=== PATIENT | male | born 1975 | race Caucasian/White ===

== ENCOUNTER 2019-05-10 12:24 | Emergency (ER) | payer OTHER, SELFPAY ==
--- NOTE | 2019-05-10 12:27 | ED.EXTPRO ---
HPI - Extremity Problem <Bette Dinero PA-C - Last Filed: 05/10/19 20:43> General Chief complaint: Skin/Abscess/Foreign Body Stated complaint: Rt ring finger infection Time Seen by Provider: 05/10/19 12:26 Source: patient Mode of arrival: ambulatory Limitations: no limitations History of Present Illness HPI Narrative: This 43-year-old right-handed male comes to ED secondary to concern for right ring finger slivers and infection. 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 He noticed a little swelling and a small nodule on the finger, then a lot of itching and more redness around the area this morning. He states this is not painful, he has no difficulty with movement or weakness. No drainage from the finger. He denies any fever or other new complaints. He did not notice any lesions prior to working yesterday. He is here for few more days and thought he better get this checked out since he will be traveling for work Related Data Previous Rx's Medication Instructions Recorded cephalexin [Keflex] 500 mg PO Q6H 7 Days #28 cap 05/10/19 Allergies Allergy/AdvReac Type Severity Reaction Status Date / Time No Known Drug Allergies Allergy Verified 05/10/19 12:39 Review of Systems <Bette Dinero PA-C - Last Filed: 05/10/19 20:43> Review of Systems ROS Unobtainable: All systems reviewed & are unremarkable except as noted in HPI and below PFSH <Bette Dinero PA-C - Last Filed: 05/10/19 20:43> Medical History (Updated 05/10/19 @ 13:47 by ) No chronic problems (Chronic) Surgical History (Updated 05/10/19 @ 12:58 by Bette Dinero PA-C) No history of previous surgery (Chronic) Social History Smoking Status: Never smoker Social History Smoking Status: Never smoker Exam <Bette Dinero PA-C - Last Filed: 05/10/19 20:43> Narrative Exam Narrative: GENERAL APPEARANCE: Patient sitting comfortably, in no distress. LUNGS: Clear to auscultation bilaterally. HEART: Rate and rhythm regular without murmur, normal S1 and S2, no S3 or S4. DERMATOLOGIC: Right ring finger anterior surface just distal to the PIP there is a punctate firm papule about 3 mm in diameter, no drainage, no visible foreign body. The finger pad is not edematous, mildly warm and erythematous, nontender MUSCULOSKELETAL: Right ring finger full active range of motion, strength is intact in all gallegos against resistance NEUROVASCULAR: Right hand fingers are warm and pink with sensation grossly intact Initial Vital Signs Initial Vital Signs: Vital Signs Temperature 98.3 F 05/10/19 12:30 Pulse Rate 55 L 05/10/19 12:30 Respiratory Rate 17 05/10/19 12:30 Blood Pressure 136/76 05/10/19 12:30 Pulse Oximetry 98 05/10/19 12:30 <DO Amaury Luz Last Filed: 05/14/19 07:45> Initial Vital Signs Initial Vital Signs: Vital Signs Temperature 98.3 F 05/10/19 12:30 Pulse Rate 55 L 05/10/19 12:30 Respiratory Rate 17 05/10/19 12:30 Blood Pressure 136/76 05/10/19 12:30 Pulse Oximetry 98 05/10/19 12:30 Course <Bette Dinero PA-C - Last Filed: 05/10/19 20:43> Orders Ordered: ED Orders 05/10/19 12:53 XR finger RT min 2V Stat Vital Signs - 8 hr 05/10/19 12:30 Temperature 98.3 F Pulse Rate 55 L Respiratory Rate 17 Blood Pressure [Left Arm] 136/76 Pulse Oximetry 98 <DO Amaury Luz Last Filed: 05/14/19 07:45> Orders Ordered: ED Orders 05/10/19 12:53 XR finger RT min 2V Stat Vital Signs - 8 hr 05/10/19 12:30 Temperature 98.3 F Pulse Rate 55 L Respiratory Rate 17 Blood Pressure [Left Arm] 136/76 Pulse Oximetry 98 MDM - Extremity (Nontraumatic) <PAULA Mazariegos Last Filed: 05/10/19 20:43> Imaging Data finger: Radiologist's impression: [address] [address] XRay Report Signed Patient: Corby Carmona PMR#: [id number] : 1975Acct:[id number] Age/Sex: 43 / MDate of Service: 05/10/19 Loc: ED Accession Number: [id number] Procedure: XR finger RT min 2V Ordering Provider: Bette Dinero P.A-C PROCEDURE: XR FINGER RT MIN 2V INDICATIONS: R. ring ?metal splinters TECHNIQUE: AP hand, 2 views of the right fourth finger(s) acquired. COMPARISON: None. FINDINGS: Bones: No fractures or dislocations. No suspicious bony lesions. Soft tissues: No suspicious soft tissue calcifications. IMPRESSION: No radiopaque foreign body. No acute fracture. No osseous lesion. If symptoms or clinical suspicion for pathology persists, repeat plain films, or advanced imaging (CT, bone scan, or MRI) may be helpful for further assessment. Dictated by: Eloina Purdy M.D. on 05/10/2019 at 12:16 Approved by: Eloina Purdy M.D. on 05/10/2019 at 12:17 Discharge Plan Departure Patient Disposition: Home Clinical Impression: Cellulitis Discharge Date/Time: 05/10/19 14:00 Interventions: ED Discharge Assessment Last Done: 05/10/19 13:57 Instructions: DI for Cellulitis -- Adult Activity Restrictions/Additional Instructions: You should be seen right away if you have acutely worsening symptoms such as rapidly spreading redness, new pain, immobility in the finger, or draining pus or new fever. Otherwise, please take the antibiotic for 7 days. Keep your finger covered, clean and dry at work. Today, the bump on the finger looks more like an irritated wart or callused area that may have gotten infected and irritated due to repetitive motion and rubbing while at work as well as perhaps scratching since it has been itchy, so you can follow up with your PCP to see if that needs further treatment if it is still bothering you after you finish the antibiotic Prescriptions: New cephalexin [Keflex] 500 mg capsule 500 mg PO Q6H 7 Days Qty: 28 RF: 0 Referrals: Bipin Florian [Other] <Juliette Zarate DO - Last Filed: 05/14/19 07:45> Cosign ED Attending Cosignature Attestation: I was immediately available in the department for consultation. This documentation has been reviewed and I agree with assessment and plan. Supervised by Juliette Zarate,
[2019-05-10 12:28] VITALS: BMI 23.3
[2019-05-10 12:30] VITALS: BP 136/76; PULSE 55; RESP 17; TEMP 36.8; O2SAT 98
--- NOTE | 2019-05-10 12:53 | DI.RAD.S_ITS ---
PROCEDURE: XR FINGER RT MIN 2V INDICATIONS: R. ring ?metal splinters TECHNIQUE: AP hand, 2 views of the right fourth finger(s) acquired. COMPARISON: None. FINDINGS: Bones: No fractures or dislocations. No suspicious bony lesions. Soft tissues: No suspicious soft tissue calcifications. IMPRESSION: No radiopaque foreign body. No acute fracture. No osseous lesion. If symptoms or clinical suspicion for pathology persists, repeat plain films, or advanced imaging (CT, bone scan, or MRI) may be helpful for further assessment. Dictated by: Eloina Purdy M.D. on 05/10/2019 at 12:16 Approved by: Eloina Purdy M.D. on 05/10/2019 at 12:17
--- NOTE | 2019-05-10 13:00 | ED_ITS ---
HPI - Extremity Problem <Bette Dinero PA-C - Last Filed: 05/10/19 20:43> General Chief complaint: Skin/Abscess/Foreign Body Stated complaint: Rt ring finger infection Time Seen by Provider: 05/10/19 12:26 Source: patient Mode of arrival: ambulatory Limitations: no limitations History of Present Illness HPI Narrative: This 43-year-old right-handed male comes to ED secondary to concern for right ring finger slivers and infection. 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 He noticed a little swelling and a small nodule on the finger, then a lot of itching and more redness around the area this morning. He states this is not painful, he has no difficulty with movement or weakness. No drainage from the finger. He denies any fever or other new complaints. He did not notice any lesions prior to working yesterday. He is here for few more days and thought he better get this checked out since he will be traveling for work Related Data Previous Rx's Medication Instructions Recorded cephalexin [Keflex] 500 mg PO Q6H 7 Days #28 cap 05/10/19 Allergies Allergy/AdvReac Type Severity Reaction Status Date / Time No Known Drug Allergies Allergy Verified 05/10/19 12:39 Review of Systems <Bette Dinero PA-C - Last Filed: 05/10/19 20:43> Review of Systems ROS Unobtainable: All systems reviewed & are unremarkable except as noted in HPI and below PFSH <Bette Dinero PA-C - Last Filed: 05/10/19 20:43> Medical History (Updated 05/10/19 @ 13:47 by ) No chronic problems (Chronic) Surgical History (Updated 05/10/19 @ 12:58 by Bette Dinero PA-C) No history of previous surgery (Chronic) Social History Smoking Status: Never smoker Social History Smoking Status: Never smoker Exam <Bette Dniero PA-C - Last Filed: 05/10/19 20:43> Narrative Exam Narrative: GENERAL APPEARANCE: Patient sitting comfortably, in no distress. LUNGS: Clear to auscultation bilaterally. HEART: Rate and rhythm regular without murmur, normal S1 and S2, no S3 or S4. DERMATOLOGIC: Right ring finger anterior surface just distal to the PIP there is a punctate firm papule about 3 mm in diameter, no drainage, no visible foreign body. The finger pad is not edematous, mildly warm and erythematous, nontender MUSCULOSKELETAL: Right ring finger full active range of motion, strength is intact in all gallegos against resistance NEUROVASCULAR: Right hand fingers are warm and pink with sensation grossly intact Initial Vital Signs Initial Vital Signs: Vital Signs Temperature 98.3 F 05/10/19 12:30 Pulse Rate 55 L 05/10/19 12:30 Respiratory Rate 17 05/10/19 12:30 Blood Pressure 136/76 05/10/19 12:30 Pulse Oximetry 98 05/10/19 12:30 <DO Amaury Luz Last Filed: 05/14/19 07:45> Initial Vital Signs Initial Vital Signs: Vital Signs Temperature 98.3 F 05/10/19 12:30 Pulse Rate 55 L 05/10/19 12:30 Respiratory Rate 17 05/10/19 12:30 Blood Pressure 136/76 05/10/19 12:30 Pulse Oximetry 98 05/10/19 12:30 Course <Bette Dinero PA-C - Last Filed: 05/10/19 20:43> Orders Ordered: ED Orders 05/10/19 12:53 XR finger RT min 2V Stat Vital Signs - 8 hr 05/10/19 12:30 Temperature 98.3 F Pulse Rate 55 L Respiratory Rate 17 Blood Pressure [Left Arm] 136/76 Pulse Oximetry 98 <DO Amaury Luz Last Filed: 05/14/19 07:45> Orders Ordered: ED Orders 05/10/19 12:53 XR finger RT min 2V Stat Vital Signs - 8 hr 05/10/19 12:30 Temperature 98.3 F Pulse Rate 55 L Respiratory Rate 17 Blood Pressure [Left Arm] 136/76 Pulse Oximetry 98 MDM - Extremity (Nontraumatic) <PAULA Mazariegos Last Filed: 05/10/19 20:43> Imaging Data finger: Radiologist's impression: [address] [address] XRay Report Signed Patient: Corby Carmona PMR#: [id number] : 1975Acct:[id number] Age/Sex: 43 / MDate of Service: 05/10/19 Loc: ED Accession Number: [id number] Procedure: XR finger RT min 2V Ordering Provider: Bette Dinero P.A-C PROCEDURE: XR FINGER RT MIN 2V INDICATIONS: R. ring ?metal splinters TECHNIQUE: AP hand, 2 views of the right fourth finger(s) acquired. COMPARISON: None. FINDINGS: Bones: No fractures or dislocations. No suspicious bony lesions. Soft tissues: No suspicious soft tissue calcifications. IMPRESSION: No radiopaque foreign body. No acute fracture. No osseous lesion. If symptoms or clinical suspicion for pathology persists, repeat plain films, or advanced imaging (CT, bone scan, or MRI) may be helpful for further assessment. Dictated by: Eloina Purdy M.D. on 05/10/2019 at 12:16 Approved by: Eloina Purdy M.D. on 05/10/2019 at 12:17 Discharge Plan Departure Patient Disposition: Home Clinical Impression: Cellulitis Discharge Date/Time: 05/10/19 14:00 Interventions: ED Discharge Assessment Last Done: 05/10/19 13:57 Instructions: DI for Cellulitis -- Adult Activity Restrictions/Additional Instructions: You should be seen right away if you have acutely worsening symptoms such as rapidly spreading redness, new pain, immobility in the finger, or draining pus or new fever. Otherwise, please take the antibiotic for 7 days. Keep your finger covered, clean and dry at work. Today, the bump on the finger looks more like an irritated wart or callused area that may have gotten infected and irritated due to repetitive motion and rubbing while at work as well as perhaps scratching since it has been itchy, so you can follow up with your PCP to see if that needs further treatment if it is still bothering you after you finish the antibiotic Prescriptions: New cephalexin [Keflex] 500 mg capsule 500 mg PO Q6H 7 Days Qty: 28 RF: 0 Referrals: Bipin Florian [Other] <Juliette Zarate DO - Last Filed: 05/14/19 07:45> Cosign ED Attending Cosignature Attestation: I was immediately available in the department for consultation. This documentation has been reviewed and I agree with assessment and plan. Supervised by Juliette Zarate,
== END 2019-05-10 14:00 | disposition home or self-care (01) ==
LOC: ED 14:07
PROVIDERS: Emergency Provider Internal Medicine
DX: L03.011 Cellulitis of right finger (principal); Y99.0 Civilian activity done for income or pay
CPT/HCPCS: 73140; 99282; 99283